=== PATIENT | female | born 1990 | race African-American/Black ===

== ENCOUNTER 2018-05-16 20:29 | Emergency (ER) | payer OTHER ==
[2018-05-16 21:03] VITALS: BP 157/105; PULSE 86; TEMP 99.4; BMI 45.6
--- NOTE | 2018-05-16 21:03 | PDOC ---
Rapid Medical Evaluation Time Seen by Provider: 05/16/18 21:01 Medical Evaluation: Allergies Allergy/AdvReac Type Severity Reaction Status Date / Time No Known Allergies Allergy Verified 05/16/18 20:58 05/16/18 21:02 I have performed a brief in person evaluation of this patient. The patient presents with a chief complaints of: Mid back pain after lifting a heavy bag x9d ago. Denies any cp, sob, abd pain, bladder/bowel dysfunction Pertinent physical exam findings: right sided mid back pain , CTAB, neg flank / abd pain palp I have ordered the following:upreg The patient will proceed to the ED for further evaluation.
--- NOTE | 2018-05-16 21:35 | PDOC ---
History of Present Illness - General Chief Complaint: Back Pain Stated Complaint: BACK PAIN Time Seen by Provider: 05/16/18 21:01 History Source: Patient Exam Limitations: Clinical Condition - History of Present Illness Initial Comments: 05/16/18 21:28 Patient with no significant past medication present with complaint of pain to lower back for 5 days status post heavy lifting a week ago. Patient reports she lifted a heavy bags a week ago started having lower back pain 3 days after. Patient reported increased pain to lower back from getting out from sitting position or getting up from laying down . Patient denies any other symptoms Timing/Duration: 1 week Past History - Past Medical History Allergies/Adverse Reactions: Allergies Allergy/AdvReac Type Severity Reaction Status Date / Time No Known Allergies Allergy Verified 05/16/18 20:58 Home Medications: Ambulatory Orders Ibuprofen [Motrin -] 600 mg PO TID 05/16/18 Methocarbamol [Robaxin -] 500 mg PO BID PRN #14 tablet 05/16/18 Naproxen 500 mg PO BID PRN #20 tablet 05/16/18 Asthma: Yes Cancer: No Cardiac Disorders: No CVA: No COPD: No CHF: No DVT: No Dementia: No - Surgical History Appendectomy: No Cardiac Surgery: No Cholecystectomy: No Gastric Stapling: No GI Surgery: No - Suicide/Smoking/Psychosocial Hx Smoking History: Never smoked Information on smoking cessation initiated: No Hx Alcohol Use: No Drug/Substance Use Hx: No Substance Use Type: None Review of Systems - Review of Systems Able to Perform ROS?: Yes Is the patient limited Estonian proficient: No Constitutional: No: Weakness HEENTM: No: Symptoms Reported Respiratory: No: Symptoms reported Cardiac (ROS): No: Symptoms Reported ABD/GI: No: Symptoms Reported : No: Symptoms Reported, See HPI, Burning, Dysuria, Discharge, Frequency, Flank Pain, Hematuria, Incontinence, Pain, Urgency, Testicular Mass, Testicular Swelling, Lesions, Testicular Pain, Other Musculoskeletal: Yes: Symptoms Reported, See HPI, Back Pain (lower back), Muscle Pain. No: Joint Swelling, Muscle Weakness Neurological: No: Numbness, Paresthesia, Tingling All Other Systems: Reviewed and Negative *Physical Exam - Vital Signs Last Vital Signs Temp Pulse Resp BP Pulse Ox 99.4 F 86 20 157/105 H 99 05/16/18 20:58 05/16/18 20:58 05/16/18 20:58 05/16/18 20:58 05/16/18 20:58 - Physical Exam Comments: 05/16/18 21:36 GENERAL: Well developed, well nourished. Awake and alert. No acute distress. CARDIOVASCULAR: Regular rate and rhythm. No murmurs, rubs, or gallops. PULMONARY: No evidence of respiratory distress. Lungs clear to auscultation bilaterally. No wheezing, rales or rhonchi. ABDOMINAL: Soft. Non-tender. Non-distended. No rebound or guarding. No organomegaly. Normoactive bowel sounds MUSCULOSKELETAL : mild tenderness over posterior paravertebral muscle o lumbar spine of L5-S1 on bilateral sides. No bony deformities EXTREMITIES: No cyanosis. No clubbing. No edema. No calf tenderness. SKIN: Warm and dry. Normal capillary refill. No rashes. No jaundice. NEUROLOGICAL: Alert, awake, appropriate. No motor deficits in the lower extremities. Gait is normal without ataxia. PSYCHIATRIC: Cooperative. Good eye contact. Appropriate mood and affect. General Appearance: Yes: Nourished, Appropriately Dressed. No: Apparent Distress ED Treatment Course - ADDITIONAL ORDERS Additional order review: Laboratory Results 05/16/18 21:12 Urine HCG, Qual Negative - RADIOLOGY Radiology Studies Ordered: Category Date Time Status SPINE-LUMBAR SACRAL [RAD] Stat Radiology 05/16/18 21:26 Ordered Medical Decision Making - Medical Decision Making 05/16/18 21:37 Patient with no significant past medication present with complaint of five-day history of lower back pain status post heavy lifting a week ago. Patient with no radiculopathy pain. Exam significant for mild tenderness to lower lumbar spine area. Symptoms likely back strain. X-ray of lumbosacral ordered. Patient be discharged home on NSAIDs and muscle relaxer with orthopedist follow-up if negative x-rays 05/16/18 21:52 X-RAY of lumbosacral shows no acute dislocation and fracture. patient stable for discharge on NSAIDS and muscle relaxer with orthopedics follow-up *DC/Admit/Observation/Transfer Diagnosis at time of Disposition: Back spasm Lumbago Qualifiers: Chronicity: acute Back pain laterality: midline Sciatica presence: without sciatica Qualified Code(s): M54.5 - Low back pain - Discharge Dispostion Disposition: HOME Condition at time of disposition: Stable Decision to Admit order: No - Prescriptions Prescriptions: Methocarbamol [Robaxin -] 500 mg PO BID PRN #14 tablet PRN Reason: Back Pain Naproxen 500 mg PO BID PRN #20 tablet PRN Reason: Back Pain - Referrals Referrals: Akhil Sosa MD [Staff Physician] - - Patient Instructions Printed Discharge Instructions: DI for Back Spasm, DI for Back Strain or Sprain Additional Instructions: take medication as prescribed as needed for pain. apply heat therapy to lower back 2-3 times/ day as needed. follow-up with referred orthopedics if symptoms persist for more than 4 days - Post Discharge Activity
== END 2018-05-16 22:25 | disposition home or self-care (01) ==
LOC: JERFT 20:29
DX: M62.830 Muscle spasm of back (principal); M54.5 Low back pain; X50.9XXA Other and unspecified overexertion or strenuous movements or postures, initial encounter; Y93.89 Activity, other specified; Y92.89 Other specified places as the place of occurrence of the external cause; Y99.8 Other external cause status
CPT/HCPCS: 72100-TC-FY; 84703; 99281-25